=== PATIENT | male | born 1990 | race Caucasian/White ===

== ENCOUNTER 2023-09-05 16:17 | Emergency (ER) | payer BC, SELFPAY ==
[2023-09-05 16:20] VITALS: BP 164/103
[2023-09-05 22:48] VITALS: BMI 29.6
[2023-09-05 22:50] VITALS: BP 143/69
--- NOTE | 2023-09-05 23:15 | ED.GENMED ---
History of Present Illness
General
Chief Complaint: Male Genito-Urinary Symptoms
Source: patient
Exam Limitations: none
Time Seen by Provider: 09/05/23 23:04
Nursing documentation reviewed up to this point in time: agreed with
Travel History
Have you had any contact with someone who has COVID-19?: No
Do you have any symptoms of coronavirus? Fever > 100 degrees, chills, cough, shortness of breath, sore throat, loss of taste or smell, muscle aches, or headache?: No
History of Present Illness
History of Present Illness:
This a pleasant 32-year-old male presents with a lump on his scrotum that he discovered last weekend. He states that it has been increasing in size over the last few days. He had an appointment for tomorrow with [facility] urology but states
that the office called today and postponed until next week. He decided to come in to get it evaluated. Denies fever, chills, nausea or vomiting. Reports no difficulty urinating.
Vital signs are stable. Patient not hypoxic
Nursing note reviewed. I agree with nursing documentation up to this point in time.
Home Meds and allergies reviewed.
NUMBER AND COMPLEXITY OF PROBLEMS ADDRESSED AT THE ENCOUNTER
� Chronic conditions affecting care:
� Acute Exacerbation and/or Progression of Chronic Illness:
� Differential Diagnosis includes:
AMOUNT AND/OR COMPLEXITY OF DATA TO BE REVIEWED AND ANALYZED
I performed an independent evaluation of the following and my interpretation is:
EKG:
CT:
X-rays:
Ultrasound: Generalized heterogeneous echogenic tissue occupying a large volume of the central scrotum, with the suggestion of possible subtle motion/peristalsis. This is suggestive of a hernia. However, survey examination of
the inguinal regions fails to confirm the presence of a right or left inguinal hernia. Initial step for further evaluation may include pelvic CT.
Laboratory Studies:
Other:
Review of other/old records:
Clinical information was obtained by an independent historian:
Prescriptions/Medications Considered but not given:
Further testing considered but not performed:
RISK OF COMPLICATIONS AND/OR MORBIDITY OR MORTALITY OF PATIENT MANAGEMENT
Social determinants of health affecting care: Good Social Support
Discussion with other providers:
Escalation of care including admission/observation vs risk of discharge considered:
CRITICAL CARE NOTE:
Total Time (exclusive of procedures):
Update:
Past History
Past History
ED Past Medical History: None
ED Past Surgical History: None
Social History
Tobacco: Non-smoker
Drug: None
Review of Systems
Review of Systems
Allergies reviewed?: Yes
All Other Systems: ROS reviewed and negative except as documented in HPI and ROS
: Reports other (Scrotal mass); Denies dysuria, frequency, flank pain, incontinence, difficulty voiding, urgency, bleeding or discharge
Musculoskeletal: Denies no symptoms
Phy Exam
General Physical Exam
General Presentation: well appearing and no apparent distress
General age: appears stated age
General Skin: warm and dry
General Habitus: normal
General Mental: alert
Cardiovascular Exam
Cardiovascular Exam: regular rate/rhythm and no edema
Pulmonary Exam
Pulmonary Exam: lungs clear and no respiratory distress
Gastrointestinal Exam
Gastrointestinal Exam: normal bowel sounds and non tender
Genitourinary Exam Male
Exam Male: circumcised, no testicular swelling, no testicular tenderness and other (Fullness in between the 2 testes consistent with a mass)
Testicular Exam: Single palpable mass: Bilateral
Neurological Exam
Neurological Exam: alert and oriented x3
Musculoskeletal Exam
Musculoskeletal Exam: full ROM
Skin Exam
Skin Exam: normal color and warm/dry
Course
Orders/Labs/Results
Orders:
Orders
09/05/23 16:23
Scrotum US [US Scrotum] Urgent
Comment:
Reason For Exam: lump and swelling
09/06/23 00:00
CT Abd/pelvis W Iv Cont Urgent
Reason For Exam: scrotal mass possible hernia
Vital Signs
Initial and Last Documented VS:
Initial Vital Signs
Temp Pulse Resp BP Pulse Ox
98.5 F 104 18 164/103 99
09/05/23 16:20 09/05/23 16:20 09/05/23 16:20 09/05/23 16:20 09/05/23 16:20
Last Documented Vital Signs
Temp Pulse Resp BP Pulse Ox
98.5 F 74 18 143/69 99
09/05/23 16:20 09/05/23 22:50 09/05/23 22:50 09/05/23 22:50 09/05/23 22:50
*Critical Care Note
Total Time (30-74mins, 75-104mins- exclusive of procedures): Not Applicable
Update Note
Update Note:
Discussed CAT scan findings with patient. He currently is in no acute distress. Discussed return to ER precautions including increased pain, fever, chills, difficulty voiding or any other concerning symptoms to him. He will follow-up with general
surgery and urology. I feel that he has good understanding of hernias and incarcerated hernias. I feel that he will return to the emergency department with any changing or worsening of symptoms. I answered many questions that he had to his
satisfaction. He has no further questions and is being discharged in improved condition.
ED Attending Note
-
Portions of this chart may have been created with voice recognition software.� Occasional wrong word or��sound alike� substitutions may have occurred due to the inherent limitations of voice recognition software.
Discharge Plan
Departure
Patient Disposition: Home (Routine Discharge)
Date of Disposition: 09/06/23
Time of Disposition: 00:50
Patient with high blood pressure during this ER visit?: Yes
Condition: Good
Discharge Problem:
Bilateral varicoceles, Mass of scrotum
Instructions: Varicocele, BLOOD PRESSURE
Prescriptions:
No Action
doxycycline hyclate 100 MG capsule
100 mg PO Q12 Qty: 14 0RF
Referrals:
Kingsley Nova MD [Active] - As needed
UNKNOWN - PT DOES,NOT KNOW [Family Provider] -
Activity Restrictions/Additional Instructions:
Please keep your appointment with [facility] urology scheduled for next week.
It was a pleasure meeting you and taking part in your care. We hope for your continued healing and wellness.
Please read discharge instructions in their entirety. However, they are for general education and may not describe your exact diagnosis at discharge. Information on your ER visit and medical conditions were discussed with you along with appropriate
follow up information...
If indicated, please take your medications as instructed and indicated on discharge paperwork.
Please schedule a follow up appointment as directed. Call to schedule an appointment
Please return to the emergency department with ANY change in, persisting, or worsening of symptoms. If any of your symptoms do not improve, or persist, or become more severe within 6-12 hours, please return to the emergency department for further
care.
Please return to the emergency department if you develop a headache, neck pain/stiffness, fever greater than 100.4F, chest pain, shortness of breath, persistent nausea, vomiting, slurred speech, difficulty walking, numbness/tingling, weakness, signs
of infection or any other symptoms that are worrisome to you.
If you have any questions or concerns please do not hesitate to call the Hospital at or E-mail me directly at [email or web address]
Interventions
Interventions:
*Risk Screen - Suicide Last Done: 09/05/23 16:20
*General Assessment Last Done: 09/05/23 16:20
*Neglect/Abuse Screening Last Done: 09/05/23 16:20
ED- Fall Risk Assessment Last Done: 09/05/23 22:50
*ED COVID-19 Vaccine History Last Done: 09/05/23 16:20
ED-Male Genitourinary Assessment Last Done: 09/05/23 22:49
Discharge Date and Time
Print Language: ITALIAN
== END 2023-09-06 01:23 | disposition home or self-care (01) ==
LOC: EMR 16:17
PROVIDERS: EMERGENCY PHYSICIAN Student in an Organized Health Care Education/Training Program
DX: I86.1 Scrotal varices (principal); N50.89 Other specified disorders of the male genital organs; R03.0 Elevated blood-pressure reading, without diagnosis of hypertension
CPT/HCPCS: 99285; 74177; 76870; 93976; Q9967